=== PATIENT | female | born 1960 | race Caucasian/White ===

== ENCOUNTER 2022-02-19 16:35 | Outpatient (CLI) | payer BC ==
[2022-02-19] MEDS ORDERED: iohexoL-300 100 ML VIAL ONE (16:54)
[2022-02-19] MEDS ORDERED: iohexoL-300 100 ML VIAL IVP ONE (18:23)
--- NOTE | 2022-02-20 12:19 | CT Report ---
PROCEDURE: SOFT TISSUE NECK W INDICATIONS: NECK MASS CONTRAST: IV CONTRAST: Optiray 320 ml: 100 PO CONTRAST: *NO PO CONTRAST TECHNIQUE: After the administration of intravenous contrast, 3.0 mm axial sections acquired from the sella to th e aortic arch. Additional oblique axial 3.0 mm sections acquired through the pharynx. 3 mm thick co devyn reformats were generated. For radiation dose reduction, the following was used: automated exp osure control, adjustment of mA and/or kV according to patient size. COMPARISON: None. FINDINGS: Image quality: Excellent. Lymph nodes: Palpable abnormality corresponds with a 1.2 x 2.0 cm submandibular lymph node with low-d ensity core. Smaller findings submental nodes are present bilaterally. As well as in both cervical ch ains Vessels: Visualized vasculature appears patent. Neck spaces: The oropharynx, nasopharynx, and pharynx demonstrate no mucosal lesions. The vocal cor ds, false vocal cords, pyriform sinuses, epiglottis, vallecula, and tongue base all appear normal. E xtramucosal spaces appear unremarkable. Glands: The parotid and submandibular glands appear normal. The thyroid is normal in size and there are no incidental findings. Miscellaneous: Visualized brain and orbits appear normal. Biapical pulmonary emphysema present.. Goss perficial soft tissues appear normal. Bones: No suspicious bony lesions. Visualized sinuses and mastoids appear unremarkable. Degenerati ve disc disease and arthropathy noted in the cervical spine. No intrinsic osseous lesion. Moderate ce ntral stenosis C5-6 IMPRESSION: Palpable abnormality corresponds with right submandibular adenopathy with low-density center. Differe ntial would include suppurative adenitis and adenopathy with internal necrosis. Consider ultrasound-g uided percutaneous biopsy Biapical pulmonary emphysema Reviewed by: Kiel Paez MD on 02/20/2022 11:17 AM SUSIE Approved by: Kiel Paez MD on 02/20/2022 11:17 AM AKROLDAN Station ID: [id number]
== END 2022-02-19 16:36 | disposition home or self-care (01) ==
LOC: EDSEX → DI 16:35
PROVIDERS: ATTEND Dentist Oral and Maxillofacial Surgery
DX: R59.0 Localized enlarged lymph nodes (principal)
CPT/HCPCS: 70491; Q9967

== ENCOUNTER 2022-07-14 12:02 | Emergency (ER) | payer BC ==
[2022-07-14 12:16] VITALS: BP 170/80
--- NOTE | 2022-07-14 12:31 | ED Physician Documentation ---
History of Present Illness - Stated complaint Stated Complaint: PICC LINE WET - Chief complaint Chief Complaint: General - History obtained from History obtained from: Patient - History of Present Illness Pain level max: 0 Pain level now: 0 - Additonal information Additional information: 61-year-old female presents to the emergency department stating that she has had a PICC line in the right arm for the past 2 weeks. Today the dressing became wet while taking a shower. She is here requesting a dressing change. No fevers. No chills. No swelling. No redness. She has a history of "oral cancer". Review of Systems Constitutional: denies: Fever, Chills PD PAST MEDICAL HISTORY - Past Medical History Past Medical History: Yes Other Past Medical History: oral cancer - Past Surgical History Past Surgical History: No - Allergies Allergies/Adverse Reactions: Allergies Allergy/AdvReac Type Severity Reaction Status Date / Time No Known Drug Allergies Allergy Verified 07/14/22 12:16 - Family History Family history: reports: Non contributory PD ED PE NORMAL - Vitals Vital signs reviewed: Yes - General General: Alert and oriented X 3, No acute distress - HEENT HEENT: Moist mucous membranes - Derm Derm: Warm and dry - Extremities Extremities: Other (R arm - PICC line in place. No signs of infection.) - Neuro Neuro: Alert and oriented X 3 Results - Vitals Vitals: Vital Signs - 24 hr 07/14/22 12:14 Temperature 37.0 C Heart Rate 99 Respiratory 20 Rate Blood Pressure 170/80 H O2 Saturation 96 Oxygen O2 Source Room air PD Medical Decision Making - ED course Complexity details: considered differential, d/w patient ED course: PICC line dressing was changed by to the RN. No other acute emergency medical condition at this time. Patient counseled regarding signs and symptoms for which I believe and urgent re-evaluation would be necessary. Patient with good understanding of and agreement to plan and is comfortable going home at this time This document was made in part using voice recognition software. While efforts are made to proofread this document, sound alike and grammatical errors may occur. Departure - Departure Disposition: 01 Home, Self Care Clinical Impression: Dressing change Condition: Good Instructions: ED PICC Line Care Follow-Up: Your,doctor As needed [Other] Comments: Your PICC line dressing was changed today. Please follow-up with your doctor for further care. Return if you worsen.
== END 2022-07-14 12:47 | disposition home or self-care (01) ==
LOC: ED 12:02
DX: Z48.00 Encounter for change or removal of nonsurgical wound dressing (principal); C06.9 Malignant neoplasm of mouth, unspecified
CPT/HCPCS: 99282

== ENCOUNTER 2022-08-31 12:55 | Observation (INO) | payer BC ==
[2022-08-31] MEDS ORDERED: SODIUM CHLORIDE 0.9% 1,000 ML IV STA (14:03)
[2022-08-31] MEDS ORDERED: LACTATED RINGERS 1,000 ML IV STA (14:03)
[2022-08-31] MEDS ORDERED: METOCLOPRAMIDE 10 MG/2 ML VIAL IVP STA (14:03)
--- NOTE | 2022-08-31 14:08 | ED Physician Documentation ---
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 Now chemo q Friday and radiation weekly at [facility]. 4 days diarrhea, then nausea. ompltely PEG Tube fed but whenever she put something in through her PEG tube it comes out as vomit. She has no pain with this. She did have a single elevated temperature of 100.5 yesterday. No sick contacts. No recent travel. PD PAST MEDICAL HISTORY - Past Surgical History Past Surgical History: No - Allergies Allergies/Adverse Reactions: Allergies Allergy/AdvReac Type Severity Reaction Status Date / Time No Known Drug Allergies Allergy Verified 07/14/22 12:16 PD ED PE NORMAL - Vitals Vital signs reviewed: Yes - General General: Alert and oriented X 3, No acute distress - HEENT HEENT: Other (Dry mucous membranes) - Abdomen Abdomen: Normal bowel sounds, Soft, Non tender, Other (PEG tube upper abdomen) - Derm Derm: Other (Radiation drew on the upper chest/neck) - Extremities Extremities: No edema, No calf tenderness / cord - Neuro Neuro: Alert and oriented X 3, Normal speech Results - Vitals Vitals: Vital Signs - 24 hr 08/31/22 13:01 Temperature 36.4 C L Heart Rate 100 Respiratory 18 Rate Blood Pressure 89/45 L O2 Saturation 96 Oxygen O2 Source Room air - Labs Labs: Laboratory Tests 08/31/22 08/31/22 14:10 14:10 WBC 5.7 RBC 3.47 L Hgb 10.0 L Hct 30.3 L MCV 87.3 MCH 28.8 MCHC 33.0 RDW 16.5 H Plt Count 405 MPV 8.5 Neut # (Auto) 4.4 Lymph # (Auto) 0.4 L [place] # (Auto) 0.9 Eos # (Auto) 0.0 Baso # (Auto) 0.0 Absolute Nucleated RBC 0.00 Nucleated RBC % 0.0 Sodium 129 L Potassium 2.4 L* Chloride 95 L Carbon Dioxide 21 Anion Gap 13.0 BUN 14 Creatinine 1.1 H Estimated GFR (MDRD) 51 L Glucose 138 H Calcium 9.0 Magnesium 1.6 L Total Bilirubin 0.6 AST 15 ALT 15 Alkaline Phosphatase 113 Total Protein 7.7 Albumin 3.1 L Globulin 4.6 H Albumin/Globulin Ratio 0.7 L Lipase 22 PD Medical Decision Making - ED course ED course: 61-year-old woman with diarrhea on chemotherapy and vomiting. Benign abdomen. Febrile at home yesterday but not corroborated here with low blood pressures but appearing well. She was hydrated via her PICC line and found to have a CBC showing mild anemia but a CMP with severe hypokalemia and modest hypomagnesemia both repleted via IV. Given how low her potassium is and her hypotension I spoke with Dr. Hummel for observation at approximately 3:10 PM. Departure - Departure Disposition: ED Place in Observation Clinical Impression: Dehydration, Hypokalemia, Hypomagnesemia, Diarrhea, Vomiting Condition: Serious
[2022-08-31 14:14] LABS: BASOPHILS % (AUTO) 0.7 %; EOSINOPHILS % (AUTO) 0.4 %; HCT - HEMATOCRIT 30.3 % (37.0-47.0); LYMPHOCYTES # (AUTO) 0.4 10^3/uL (1.5-3.5); LYMPHOCYTES % (AUTO) 6.9 %; MEAN CORPUSCULAR HEMOGLOBIN 28.8 pg (27.0-31.0); MEAN CORPUSCULAR VOLUME 87.3 fL (81.0-99.0); MEAN PLATELET VOLUME 8.5 fL (7.9-10.8); MONOCYTES # (AUTO) 0.9 10^3/uL (0.0-1.0); MONOCYTES % (AUTO) 14.9 %; NEUTROPHILS # (AUTO) 4.4 10^3/uL (1.5-6.6); NEUTROPHILS % (AUTO) 76.7 %; PLT - PLATELET COUNT 405 10^3/uL (130-450); RED BLOOD COUNT 3.47 10^6/uL (4.20-5.40); RED CELL DISTRIBUTION WIDTH 16.5 % (12.0-15.0); WHITE BLOOD COUNT 5.7 x10^3/uL (4.8-10.8)
[2022-08-31 14:28] LABS: ALBUMIN 3.1 g/dL (3.2-5.5); ALBUMIN/GLOBULIN RATIO 0.7 (1.0-2.2); BILIRUBIN,TOTAL 0.6 mg/dL (0.2-1.0); CREATININE 1.1 mg/dL (0.4-1.0); TOTAL PROTEIN 7.7 g/dL (6.7-8.2)
[2022-08-31 14:31] LABS: POTASSIUM 2.4 mmol/L (3.5-5.0)
[2022-08-31] MEDS ORDERED: POTASSIUM CHLOR 20 MEQ/100 ML 20 MEQ/100 ML BAG IV ONE (14:31)
[2022-08-31 14:32] LABS: MAGNESIUM 1.6 mg/dL (1.7-2.8)
[2022-08-31] MEDS ORDERED: MAGNESIUM SULFATE 2 GRAM 2 GM/50 ML BAG IV ONE (15:04)
[2022-08-31] MEDS ORDERED: PROMETHAZINE 25 MG/1 ML VIAL IM PRN (16:36)
[2022-08-31] MEDS ORDERED: SODIUM CHLORIDE FLUSH 0.9% 10 ML SYRINGE IVP PRN (16:36)
[2022-08-31] MEDS ORDERED: HYDROcod/ACETAM 5/325 MG TABLET PO PRN (16:36)
[2022-08-31] MEDS ORDERED: ACETAMINOPHEN 325 MG TABLET PO PRN (16:36)
--- NOTE | 2022-08-31 16:47 | HISTORY & PHYSICAL EXAMINATION ---
Chief Complaint - Chief Complaint Chief Complaint: Diarrhea, vomiting History of Present Illness - Admitted From Admitted From:: Emergency department - History Obtained From Records Reviewed: Emergency department records History obtained from: Patient, ED physician Exam Limitations: None - History of Present Illness HPI Comment/Other: Patient is a 61-year-old female with past medical history of squamous cell carcinoma of the tongue, status postresection in March 2022. Initial diagnosis February 2022. Patient currently undergoing chemotherapy at [facility], has had 7 of 9 rounds of chemotherapy with the last one on Friday. She is also had 5 rounds of radiation therapy. She does swallow somewhat with very soft diet but has PEG tube for supplemental nutrition. She presents today with a 5-day history of progressively worsening diarrhea that started suddenly. She also has noticed vomiting every time she tries to feed herself via the PEG tube. She does report a self measured temperature at home of 100.5 F yesterday. She denies any abdominal pain. She denies any blood in the stool. Denies any hematemesis. She denies any prior history of similar episodes. She denies any sick contacts or recent travel. In the ED she was evaluated and found to be hypotensive with blood pressures in the 80s. This was reportedly measured to be in the 70 systolic at home. She has been afebrile, and has a benign abdominal exam. Lab work reveals no leukocytosis, hemoglobin of 10/hematocrit 30.3, and a potassium of 2.4. Creatinine is nearly normal at 1.1. BUN is normal at 14. LFTs are unremarkable. Stool studies were collected in the ED with results pending. Given the patient having persistent diarrhea with vomiting, hospital admission was requested. History - Past Medical History Cardiovascular: reports: Hypertension, High cholesterol, Other (Squamous cell carcinoma of the tongue) Respiratory: reports: None - Past Surgical History HEENT: reports: Other (Tongue resection March 2023) Meds/Allgy - Allergies Allergies/Adverse Reactions: Allergies Allergy/AdvReac Type Severity Reaction Status Date / Time No Known Drug Allergies Allergy Verified 08/31/22 16:39 Review of Systems - Constitutional Constitutional: reports: Fatigue, Malaise, Weakness - Cardiovascular Cariovascular: denies: Chest pain - Respiratory Respiratory: denies: Cough, SOB at rest - Gastrointestinal Gastrointestinal: reports: Diarrhea, Nausea, Vomiting. denies: Abdominal pain, Rectal bleeding, Black stools, Bloody stools - All Other Systems All Other Systems: reports: Reviewed and negative Prior Level of Functionality: Independent, however recently went on medical leave. She works at [employer]. Exam - Vital Signs Reviewed Vital Signs: Yes Vital Signs: Vital Signs x48h Temp Pulse Resp BP Pulse Ox 08/31/22 15:40 83 16 101/78 99 08/31/22 13:01 36.4 C L 100 18 89/45 L 96 - Physical Exam General Appearance: positive: No acute distress Eyes Bilateral: positive: Normal inspection ENT: positive: Other (Erythema to the skin of the neck consistent with radiation treatment, hemiresection of the tongue with resultant speech impediment) Respiratory: positive: Chest non-tender, No respiratory distress Cardiovascular: positive: Regular rate & rhythm, No murmur, No gallop Abdomen: positive: Non-tender, No organomegaly, Nml bowel sounds, No distention, Other (PEG tube site patent and clean) Skin: positive: Color nml, No rash, Warm, Dry Conclusion/Plan - Problem List (1) Nausea vomiting and diarrhea Conclusion/Plan: Patient presents with what might be infectious diarrhea given sudden onset and foul odor with watery diarrhea. Given her chemotherapy she is at risk for C. difficile Stool studies ordered in the ED IV fluids for supportive care Electrolyte replacement Follow-up stool studies and manage accordingly Contact precautions pending stool study results (2) Hypokalemia Conclusion/Plan: Potassium 2.9Secondary to GI loss from diarrhea and vomiting 20 mEq given in ED We will give an additional 40 mEq IV rider (3) Hypomagnesemia Conclusion/Plan: Magnesium replaced in ED (4) Squamous cell cancer of tongue Conclusion/Plan: Supportive care Bedside swallow eval, patient states she can tolerate small pieces of very soft food We will also continue PEG tube feeding (5) Hypertension Conclusion/Plan: Patient's blood pressure has been soft secondary to GI volume loss Continue replacement with IV fluids, NS at 100 mL/h Hold antihypertensive meds Qualifiers: Hypertension type: primary hypertension Qualified Code(s): I10 - Essential (primary) hypertension (6) Hyperlipidemia Conclusion/Plan: Hold statin - Lab Results Lab results reviewed: Yes Fish Bones: 08/31/22 14:10 08/31/22 14:10 Core Measures - Anticipated LOS I expect patient to be DC'd or transferred within 96 hours.: Yes - DVT/VTE - Prophylaxis VTE/DVT Device ordered at admit?: Yes
[2022-08-31] MEDS: SODIUM CHLORIDE 0.9% 1,000 ML IV SCH (17:01)
[2022-08-31] MEDS: SODIUM CHLORIDE FLUSH 0.9% 10 ML SYRINGE IVP SCH ×2 (18:10→23:08)
[2022-08-31] MEDS: POTASSIUM CHLOR 10 MEQ/100 ML 10 MEQ/100 ML BAG IV SCH ×4 (18:10→21:57)
[2022-08-31] MEDS ORDERED: ALBUTEROL NEB 2.5 MG/3 ML INH PRN (18:53)
[2022-08-31] MEDS: ONDANSETRON 4 MG/2 ML VIAL IVP PRN (21:03)
[2022-08-31] MEDS: MORPHINE 2 MG/ML CARPUJECT IVP PRN (21:03)
[2022-09-01 05:39] LABS: HCT - HEMATOCRIT 25.7 % (37.0-47.0); HGB - HEMOGLOBIN 8.4 g/dL (12.0-16.0); MEAN CORPUSCULAR HEMOGLOBIN 28.9 pg (27.0-31.0); MEAN CORPUSCULAR HGB CONC 32.7 g/dL (32.0-36.0); MEAN CORPUSCULAR VOLUME 88.3 fL (81.0-99.0); MEAN PLATELET VOLUME 8.6 fL (7.9-10.8); RED BLOOD COUNT 2.91 10^6/uL (4.20-5.40); RED CELL DISTRIBUTION WIDTH 16.6 % (12.0-15.0); WHITE BLOOD COUNT 3.8 x10^3/uL (4.8-10.8)
[2022-09-01 05:52] LABS: CALCIUM 8.4 mg/dL (8.5-10.3); CREATININE 0.5 mg/dL (0.4-1.0); POTASSIUM 2.6 mmol/L (3.5-5.0)
[2022-09-01] MEDS: SODIUM CHLORIDE 0.9% 1,000 ML IV SCH (06:25)
[2022-09-01] MEDS: SODIUM CHLORIDE FLUSH 0.9% 10 ML SYRINGE IVP SCH ×3 (08:07→20:30)
[2022-09-01] MEDS: MORPHINE 2 MG/ML CARPUJECT IVP PRN ×4 (08:08→16:53)
[2022-09-01] MEDS ORDERED: ENOXAPARIN 40 MG/0.4 ML SYRINGE SUBQ SCH (09:00)
[2022-09-01] MEDS: VANCOMYCIN 125 MG CAPSULE PO SCH ×4 (10:53→20:30)
[2022-09-01] MEDS: ONDANSETRON 4 MG/2 ML VIAL IVP PRN (11:20)
[2022-09-01 13:43] LABS: CALCIUM 8.6 mg/dL (8.5-10.3); CREATININE 0.5 mg/dL (0.4-1.0); MAGNESIUM 1.8 mg/dL (1.7-2.8); POTASSIUM 2.7 mmol/L (3.5-5.0)
--- NOTE | 2022-09-01 13:51 | PROVIDER PROGRESS NOTE ---
Assessment/Plan - Problem List (1) C. difficile diarrhea Assessment/Plan: Patient admitted yesterday evening for nausea vomiting and diarrhea of 5 days duration C. difficile results positive Patient continues to have diarrhea throughout the morning Has resultant hypokalemia Per patient it is starting to slow down as of this afternoon but potassium remains low despite adequate replacement most recently reported at 2.7 Vancomycin p.o. started this morning Continue vancomycin p.o., continue to replete electrolytes and possible discharge tomorrow pending lab results and clinical course (2) Hypokalemia Assessment/Plan: Secondary to above Continues to have hypokalemia despite replacement Likely secondary to GI loss Replace IV, recheck labs in the evening (3) Hypomagnesemia Assessment/Plan: Resolved, likely secondary to GI loss (4) Squamous cell cancer of tongue Assessment/Plan: Supportive care Bedside swallow eval, patient states she can tolerate small pieces of very soft food We will also continue PEG tube feeding (5) Hypertension Qualifiers: Hypertension type: primary hypertension Qualified Code(s): I10 - Essential (primary) hypertension Assessment/Plan: Patient's blood pressure has been soft secondary to GI volume loss Continue replacement with IV fluids, NS at 100 mL/h Hold antihypertensive meds (6) Hyperlipidemia Assessment/Plan: Given difficulty tolerating p.o., hold statin - Current Meds Current Meds: Current Medications Generic Name Dose Route Start Last Admin Trade Name Freq PRN Reason Stop Dose Admin Enoxaparin Sodium 40 mg 09/01/22 09:00 09/01/22 08:07 Enoxaparin 40 Mg/0.4 Ml Syringe SUBQ 40 mg DAILY SUMAN Administration Sodium Chloride 1,000 mls @ 100 mls/hr 08/31/22 17:00 09/01/22 06:25 Normal Saline 0.9% IV 100 mls/hr .Q10H SUMAN Administration Morphine Sulfate 2 mg 08/31/22 16:36 09/01/22 13:29 Morphine 2 Mg/Ml Carpuject IVP 2 mg Q2HR PRN Administration Pain 8 to 10 Ondansetron HCl 4 mg 08/31/22 16:36 09/01/22 11:20 Ondansetron 4 Mg/2 Ml Vial IVP 4 mg Q6HR PRN Administration Nausea / Vomiting Sodium Chloride 10 ml 08/31/22 17:00 09/01/22 08:07 Sodium Chloride Flush 0.9% 10 Ml Syringe IVP 10 ml 0100,0900,1700 SUMAN Administration Vancomycin HCl 125 mg 09/01/22 10:00 09/01/22 13:22 Vancomycin 125 Mg Capsule PO 09/11/22 09:59 125 mg QID SUMAN Administration - Lab Result Lab results reviewed: Yes Fish Bone Diagrams: 09/01/22 04:49 09/01/22 13:14 - Additional Planning Condition/Complexity: Stable My Orders: My Active Orders 08/31/22 16:36 Activity Orders [RC] Q2HR IO [RC] IOSHIFT Incentive Spirometry - RT [RC] TID Initiate Bowel Care Protocol [RC] .protocol Initiate Line Care Protocol [RC] QSHIFT Initiate Personal Care Protoco [RC] .protocol Oxygen Therapy [RC] .PRN Telemetry- [RC] Q4HR Vital Signs [RC] 0800,1600,0000 Acetaminophen [Tylenol] 650 mg PO Q4HR PRN HYDROcod/ACETAM 5/325 [[place] 5/325] 1 tab PO Q4HR PRN Morphine Inj (Carpuject) [Morphine (Carpuject)] 2 mg IVP Q2HR PRN Ondansetron Inj [Zofran Inj] 4 mg IVP Q6HR PRN Promethazine Inj [Phenergan Inj] 25 mg IM Q6HR PRN Sodium Chloride Flush 0.9% [Normal Saline Flush 0.9%] 10 ml IVP PRN PRN Code Status [OTHERS] Routine Condition of Patient [OTHERS] Routine DVT Prophylaxis [OTHERS] Routine 08/31/22 16:42 Tube Feeding [RC] QSHIFT 08/31/22 17:00 Sodium Chloride 0.9% [Normal Saline 0.9%] 1,000 ml IV 100 mls/hr Sodium Chloride Flush 0.9% [Normal Saline Flush 0.9%] 10 ml IVP 0100,0900,1700 08/31/22 18:22 Isolation [Infection Precautions] [RC] QSHIFT 08/31/22 18:53 Nebulizer/MDI Tx. [RC] QID Resp Teach Nebulizer/MDI [RC] .ONCE Albuterol 2.5 mg INH RTQ4H PRN 09/01/22 Clinical Swallow Evaluation [ST] Routine 09/01/22 Breakfast Dysphagia - Puree [DIET] 09/01/22 09:00 Enoxaparin [Lovenox] 40 mg SUBQ DAILY 09/01/22 10:00 Vancomycin [Vancocin] 125 mg PO QID 09/01/22 13:48 KCL 40 MEQ in NS 0.9% @ 125 MLS/HR(520ml) (ICU ONLY) Potassium Chloride Inj [Potassium Chloride] 40 meq Sodium Chloride 0.9% [Normal Saline 0.9%] 500 ml IV ONCE 09/02/22 05:00 BMP - BASIC METABOLIC PANEL [CHEM] DAILYLAB CBC W/O DIFF (HEMOGRAM) [HEME] DAILYLAB 09/03/22 05:00 BMP - BASIC METABOLIC PANEL [CHEM] DAILYLAB CBC W/O DIFF (HEMOGRAM) [HEME] DAILYLAB Subjective - Subjective Patient Reports: Feeling Better Objective Vital Signs: Vital Signs - 24 hr 08/31/22 08/31/22 08/31/22 15:40 16:30 17:00 Temperature Heart Rate 83 76 76 Heart Rate [ Brachial] Heart Rate [ Radial] Respiratory 16 16 18 Rate Blood Pressure 101/78 90/45 L 101/46 L Blood Pressure [Left Brachial artery] O2 Saturation 99 98 96 08/31/22 08/31/22 08/31/22 17:25 17:35 21:06 Temperature 36.5 C 37.0 C Heart Rate 77 Heart Rate [ 105 H Brachial] Heart Rate [ 81 Radial] Respiratory 16 16 20 Rate Blood Pressure 102/53 L Blood Pressure 92/60 101/42 L [Left Brachial artery] O2 Saturation 97 97 91 L 09/01/22 09/01/22 09/01/22 04:49 07:56 12:07 Temperature 36.4 C L 37.0 C 37.5 C Heart Rate Heart Rate [ 73 80 81 Brachial] Heart Rate [ Radial] Respiratory 20 18 16 Rate Blood Pressure Blood Pressure 100/49 L 111/47 L 106/42 L [Left Brachial artery] O2 Saturation 92 97 99 Oxygen O2 Source Room air I&O (Last 24 Hrs): Intake and Output Totals x24h 08/30/22 08/31/22 09/01/22 23:59 23:59 23:59 Intake Total 2790 1000 Output Total 0 Balance 2790 1000 General: Alert, Oriented x3 HEENT: Atraumatic Neuro: Alert, Oriented Times 3 Cardiovascular: Regular rate Respiratory: Chest non-tender, No respiratory distress, Breath sounds nml Abdomen: No tenderness Skin: No rashes - Results Results: Laboratory Results WBC 3.8 x10^3/uL (4.8-10.8) L 09/01/22 04:49 RBC 2.91 10^6/uL (4.20-5.40) L 09/01/22 04:49 Hgb 8.4 g/dL (12.0-16.0) L 09/01/22 04:49 Hct 25.7 % (37.0-47.0) L 09/01/22 04:49 MCV 88.3 fL (81.0-99.0) 09/01/22 04:49 MCH 28.9 pg (27.0-31.0) 09/01/22 04:49 MCHC 32.7 g/dL (32.0-36.0) 09/01/22 04:49 RDW 16.6 % (12.0-15.0) H 09/01/22 04:49 Plt Count 385 10^3/uL (130-450) 09/01/22 04:49 MPV 8.6 fL (7.9-10.8) 09/01/22 04:49 Neut # (Auto) 4.4 10^3/uL (1.5-6.6) 08/31/22 14:10 Lymph # (Auto) 0.4 10^3/uL (1.5-3.5) L 08/31/22 14:10 [place] # (Auto) 0.9 10^3/uL (0.0-1.0) 08/31/22 14:10 Eos # (Auto) 0.0 10^3/uL (0.0-0.7) 08/31/22 14:10 Baso # (Auto) 0.0 10^3/uL (0.0-0.1) 08/31/22 14:10 Absolute Nucleated RBC 0.00 x10^3/uL 08/31/22 14:10 Nucleated RBC % 0.0 /100WBC 08/31/22 14:10 Sodium 136 mmol/L (135-145) 09/01/22 13:14 Potassium 2.7 mmol/L (3.5-5.0) L 09/01/22 13:14 Chloride 106 mmol/L (101-111) 09/01/22 13:14 Carbon Dioxide 20 mmol/L (21-32) L 09/01/22 13:14 Anion Gap 10.0 (6-13) 09/01/22 13:14 BUN 8 mg/dL (6-20) 09/01/22 13:14 Creatinine 0.5 mg/dL (0.4-1.0) 09/01/22 13:14 Estimated GFR (MDRD) 126 (>89) 09/01/22 13:14 Glucose 95 mg/dL (70-100) 09/01/22 13:14 Calcium 8.6 mg/dL (8.5-10.3) 09/01/22 13:14 Magnesium 1.8 mg/dL (1.7-2.8) 09/01/22 13:14 Total Bilirubin 0.6 mg/dL (0.2-1.0) 08/31/22 14:10 AST 15 IU/L (10-42) 08/31/22 14:10 ALT 15 IU/L (10-60) 08/31/22 14:10 Alkaline Phosphatase 113 IU/L (42-121) 08/31/22 14:10 Total Protein 7.7 g/dL (6.7-8.2) 08/31/22 14:10 Albumin 3.1 g/dL (3.2-5.5) L 08/31/22 14:10 Globulin 4.6 g/dL (2.1-4.2) H 08/31/22 14:10 Albumin/Globulin Ratio 0.7 (1.0-2.2) L 08/31/22 14:10 Lipase 22 U/L (22-51) 08/31/22 14:10 Stl C. diff Tox B Gene POSITIVE (NEGATIVE) A* 08/31/22 14:30 ABX Reporting Has patient been on IV antibiotics over the past 48 hours?: No
[2022-09-01] MEDS: POTASSIUM CHLOR 10 MEQ/100 ML 10 MEQ/100 ML BAG IV SCH ×4 (14:12→18:18)
[2022-09-01] MEDS ORDERED: MAGIC MOUTHWASH 120 ML BOTTLE PO PRN (14:19)
[2022-09-01] MEDS ORDERED: COD LIVER OIL/ZINC OXIDE 113 GM TUBE TOP PRN (14:19)
[2022-09-01 16:08] VITALS: BP 110/48
--- NOTE | 2022-09-01 20:26 | PROVIDER PROGRESS NOTE ---
Continuous Wave Operator Note - Continuous Wave Operator Note Continuous Wave Operator Note: Patient is requesting to leave AGAINST MEDICAL ADVICE. Chart reviewed, admitted with hypokalemia, hypomagnesemia and diarrhea. Found to have C diff diarrhea. Patient needs to go home because her dog is having babies. She is AAOx4. Her is at bedside and will drive her home. Refuses to continue with hospitalization for tonight to continue to replete/monitor electrolytes. Discussed risks of leaving including arrhythmia potentially fatal due to electrolyte abnormalities, sepsis 2/2 untreated infection, . Advised patient to continue PO vancomycin (sent to [facility]). Pt has appt with her oncologist at 9 am tomorrow. Discussed with RN. Travis Lozano [facility]
--- NOTE | 2022-09-02 07:15 | DISCHARGE SUMMARY ---
Discharge Summary Admit Date: 08/31/22 Discharge Date: 09/01/22 (Left AMA) Discharging Provider: Dr Lozano ([facility] ) Code Status: Attempt Resuscitation Condition at Discharge: Serious Discharge Disposition: 07 Against Medical Advice - DIAGNOSES Admission Diagnoses: Nausea vomiting and diarrhea Hypokalemia Hypomagnesemia Squamous cell cancer of tongue Hypertension Hyperlipidemia Discharge Diagnoses with Status of Each Condition: C. difficile diarrheaimproved Hypokalemiaunresolved Hypomagnesemia resolved Squamous cell cancer of tonguestable Hypertensionstable Hyperlipidemiastable - HPI History of Present Illness: Patient is a 61-year-old female with past medical history of squamous cell carcinoma of the tongue, status postresection in March 2022. Initial diagnosis February 2022. Patient currently undergoing chemotherapy at [facility], has had 7 of 9 rounds of chemotherapy with the last one on Friday. She is also had 5 rounds of radiation therapy. She does swallow somewhat with very soft diet but has PEG tube for supplemental nutrition. She presents today with a 5-day history of progressively worsening diarrhea that started suddenly. She also has noticed vomiting every time she tries to feed herself via the PEG tube. She does report a self measured temperature at home of 100.5 F yesterday. She denies any abdominal pain. She denies any blood in the stool. Denies any hematemesis. She denies any prior history of similar episodes. She denies any sick contacts or recent travel. In the ED she was evaluated and found to be hypotensive with blood pressures in the 80s. This was reportedly measured to be in the 70 systolic at home. She has been afebrile, and has a benign abdominal exam. Lab work reveals no leukocytosis, hemoglobin of 10/hematocrit 30.3, and a potassium of 2.4. Creatinine is nearly normal at 1.1. BUN is normal at 14. LFTs are unremarkable. Stool studies were collected in the ED with results pending. Given the patient having persistent diarrhea with vomiting, hospital admission was requested. - HOSPITAL COURSE Hospital Course: Shortly after admission the patient's stool studies came back positive for C. difficile. Her diarrhea continued through the first night of admission and subsided marginally into the next day after admission. Patient was slightly improved and was generally stable however she continued to have hypokalemia with potassium levels less than 2 despite replacement. She was very eager to go home the day after discharge, but when informed about her persistent hypokalemia in the setting of C. difficile diarrhea and the importance of allowing electrolyte replacement and monitoring, she agreed to stay when this was discussed during morning and afternoon rounds. However in the evening, the patient notified the nurses that her dog went into labor at home and she must go home to assist in the delivery of the puppies. At this time, it was after hours during which there is no in-house hospitalist so the telemedicine hospitalist was contacted. Dr. Lozano, the telemedicine hospitalist on-call, discussed with the patient the importance of electrolyte replacement and advised her against going home in particular specifically with the risks of hypokalemia in the setting of C. difficile diarrhea. The patient voiced understanding, but was not agreeable to stay and ultimately signed to leave AGAINST MEDICAL ADVICE. She was given a prescription for p.o. vancomycin and she stated she had an appointment with her oncologist the next day and would have them follow-up on her lab work. - ALLERGIES Allergies/Adverse Reactions: Allergies Allergy/AdvReac Type Severity Reaction Status Date / Time No Known Drug Allergies Allergy Verified 08/31/22 16:39 - MEDICATIONS Home Medications: Ambulatory Orders Medication Instructions Recorded Confirmed Cyclobenzaprine [Flexeril] 10 mg PO TID PRN 09/01/22 09/01/22 LORazepam [Ativan] 0.5 mg PO Q8H PRN 09/01/22 09/01/22 Morphine ER [Ms Contin] 15 mg PO Q12H 09/01/22 09/01/22 Omeprazole 40 mg PO QDAC 09/01/22 09/01/22 Oxycodone HCl/Acetaminophen 2 tab PO Q6H PRN 09/01/22 09/01/22 [Oxycodone-Acetaminophen 5-325] Vancomycin [Vancocin] 125 mg PO QID 8 Days #32 cap 09/01/22 amLODIPine [Norvasc] 5 mg PO DAILY 09/01/22 09/01/22 lisinopriL [Lisinopril] 10 mg PO DAILY 09/01/22 09/01/22 - LABS Result Diagrams: 09/01/22 04:49 09/01/22 13:14 - FOLLOW UP Follow Up: Follow-up was advised for hypokalemia and patient has appointment with her oncologist on 09/03/2022, the day after leaving AGAINST MEDICAL ADVICE. She was also advised to follow-up with her PCP. - TIME SPENT Time Spent in Discharge (Minutes): 23
[2022-09-03 15:08] LABS: CRYPTOSPORIDIUM EIA Negative (Negative); GIARDIA LAMBLIA AG EIA Negative (Negative)
== END 2022-09-01 20:45 | disposition left against medical advice (07) ==
LOC: ED 12:55 → MS2 16:36
PROVIDERS: ADMIT Family Medicine Sports Medicine; ATTEND Family Medicine Sports Medicine
DX: E86.0 Dehydration (principal); E87.6 Hypokalemia; E83.42 Hypomagnesemia; A04.72 Enterocolitis due to Clostridium difficile, not specified as recurrent; C02.9 Malignant neoplasm of tongue, unspecified; Z53.29 Procedure and treatment not carried out because of patient's decision for other reasons; I95.9 Hypotension, unspecified; I10 Essential (primary) hypertension; Z95.828 Presence of other vascular implants and grafts; Z79.899 Other long term (current) drug therapy; Z93.1 Gastrostomy status
CPT/HCPCS: 36415; 80048; 80053; 83690; 83735; 85025; 85027; 87045; 87046; 87328; 87329; 87427; 87493; 96361; 96365; 96366; 96367; 96372; 96375; 96376; 99285; A9270; G0378; J1650; J2765; J7120; J8499

== ENCOUNTER 2022-11-04 14:45 | Emergency (ER) | payer BC ==
--- NOTE | 2022-11-04 15:20 | ED Physician Documentation ---
History of Present Illness - Stated complaint Stated Complaint: PX,CHILLS,BLEEDING - Chief complaint Chief Complaint: General - History obtained from History obtained from: Patient - Additonal information Additional information: This is a 61-year-old female with a past medical history of squamous cell carcinoma with prior tongue resection and current PEG tube. She presents today due to concerns about possible infection around the PEG tube. She has had some purulent drainage and tenderness around the PEG tube interested in site for the last several days. She continues to tolerate feeds well however though has not had any other abdominal pain. She has felt chilled at times but no known fever. She does take some p.o. though she has to swallow very slowly and multiple times that she supplements with PEG tube feedings. She states she had a similar issue about 6 to 8 weeks ago and her PCP put her on short course of antibiotics which resolved the issue. She has been trying to keep the site clean and has been applying [id number] antibacterial ointment to it. She does state that she has had trouble finding appropriate drain dressings at the pharmacy and wants to know if we have any additional here. 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 : Kidney stones HEENT: None Psych: None Musculoskeletal: Chronic back pain Derm: None Other Past Medical History: oral cancer - Past Surgical History Past Surgical History: Yes /GUSSET EDGER: Hysterectomy HEENT: Other - Present Medications Home Medications: Ambulatory Orders Medication Instructions Recorded Confirmed LORazepam [Ativan] 0.5 mg PO Q8H PRN 09/01/22 11/04/22 Omeprazole 40 mg PO QDAC 09/01/22 11/04/22 Oxycodone HCl/Acetaminophen 2 tab PO Q6H PRN 09/01/22 11/04/22 [Oxycodone-Acetaminophen 5-325] Vancomycin [Vancocin] 125 mg PO QID 8 Days #32 cap 09/01/22 11/04/22 amLODIPine [Norvasc] 5 mg PO DAILY 09/01/22 11/04/22 lisinopriL [Lisinopril] 10 mg PO DAILY 09/01/22 11/04/22 Albuterol Sulf [Ventolin Hfa 1 - 2 puffs INH Q4HR PRN 11/04/22 11/04/22 Inhaler] Albuterol Sulf [Ventolin Hfa 1 - 2 puffs INH Q4HR PRN #1 each 11/04/22 Inhaler] Mupirocin 2% Oint [Bactroban 2% 1 applic TOP BID #22 gm 11/04/22 Oint] cephALEXin [Keflex] 500 mg PO Q6H #28 cap 11/04/22 - Allergies Allergies/Adverse Reactions: Allergies Allergy/AdvReac Type Severity Reaction Status Date / Time No Known Drug Allergies Allergy Verified 11/04/22 14:52 - Social History Does the pt smoke?: No Smoking Status: Former smoker Does the pt drink ETOH?: No Does the pt have substance abuse?: No - Immunizations Immunizations are current?: Yes PD ED PE NORMAL - Vitals Vital signs reviewed: Yes - General General: Alert and oriented X 3, No acute distress, Well developed/nourished - HEENT HEENT: Atraumatic, Moist mucous membranes - Cardiac Cardiac: RRR, No murmur - Respiratory Respiratory: No respiratory distress, Clear bilaterally - Abdomen Abdomen: Normal bowel sounds, Soft, Non tender, Non distended, Other (There is mild redness around the PEG tube site with a small amount of purulent drainage from the site, no palpable abscess or fluid collection.) - Derm Derm: Normal color, Warm and dry Results - Vitals Vitals: Vital Signs - 24 hr 11/04/22 11/04/22 11/04/22 14:52 15:32 16:07 Temperature 36.1 C L Heart Rate 80 74 66 Respiratory 18 14 16 Rate Blood Pressure 147/72 H 148/76 H 135/78 H O2 Saturation 100 100 100 Oxygen O2 Source Room air - Labs Labs: Laboratory Tests 11/04/22 11/04/22 15:29 15:29 WBC 3.3 L RBC 3.78 L Hgb 11.8 L Hct 35.9 L MCV 95.0 MCH 31.2 H MCHC 32.9 RDW 15.1 H Plt Count 335 MPV 8.7 Neut # (Auto) 1.8 Lymph # (Auto) 1.0 L [place] # (Auto) 0.4 Eos # (Auto) 0.1 Baso # (Auto) 0.0 Absolute Nucleated RBC 0.00 Nucleated RBC % 0.0 Sodium 138 Potassium 3.2 L Chloride 102 Carbon Dioxide 28 Anion Gap 8.0 BUN 5 L Creatinine 0.5 Estimated GFR (MDRD) 126 Glucose 107 H Calcium 9.3 PD Medical Decision Making - ED course Complexity details: reviewed results, considered differential, d/w patient ED course: 61-year-old female presents with concerns for possible infection around her PEG insertion site. She has no systemic symptoms but has tenderness to tube site. She does continue to use it for feeds and has been tolerating feeds well but has tenderness when the PEG is moved and has noticed some purulent drainage from the site. On exam, there is scant mucoid drainage around the PEG and very mild redness localized to the insertion site, no palpable abscess or induration around the tube site. Advised that she may have a mild skin infection but it appears to be localized to the insertion site and I do not think she needs a CT scan at this time to evaluate for any other source of infection. She did want to proceed lab recover and we did obtain this which is stable. We have cleaned the PEG site and applied a appropriate drain sponge and have given her an additional several sponges to use at home. She was advised to keep the area clean with gentle soap and water otherwise keep dry and she can apply mupirocin ointment and I will give her 5-day course of Keflex. If pain worsens or she develops a fever, swelling around the area, is not tolerating her feeds or has other new concerns she was advised to follow-up In the ER or follow-up with her surgeon or PCP. Departure - Departure Disposition: 01 Home, Self Care Clinical Impression: Pain around PEG tube site Qualifiers: Encounter type: initial encounter Qualified Code(s): T85.848A - Pain due to other internal prosthetic devices, implants and grafts, initial encounter Condition: Good Prescriptions: Albuterol Sulf [Ventolin Hfa Inhaler] 1 - 2 puffs INH Q4HR PRN #1 each PRN Reason: Shortness Of Air/Wheezing Mupirocin 2% Oint [Bactroban 2% Oint] 1 applic TOP BID #22 gm cephALEXin [Keflex] 500 mg PO Q6H #28 cap Comments: Your labs are stable. Please follow-up with your primary doctor and keep an eye on your PEG tube site. Keep area clean with gentle soap and water. I am prescribing you a stronger antibiotic ointment as well as a short course of oral antibiotics for this infection. If the pain gets worse or you develop a fever or other new concerns, please return to the ER. Medications sent to [facility] Discharge Date/Time: 11/04/22 16:14
[2022-11-04 15:39] LABS: BASOPHILS % (AUTO) 0.3 %; EOSINOPHILS # (AUTO) 0.1 10^3/uL (0.0-0.7); EOSINOPHILS % (AUTO) 4.3 %; HCT - HEMATOCRIT 35.9 % (37.0-47.0); HGB - HEMOGLOBIN 11.8 g/dL (12.0-16.0); LYMPHOCYTES % (AUTO) 29.5 %; MEAN CORPUSCULAR HEMOGLOBIN 31.2 pg (27.0-31.0); MEAN CORPUSCULAR HGB CONC 32.9 g/dL (32.0-36.0); MEAN PLATELET VOLUME 8.7 fL (7.9-10.8); MONOCYTES # (AUTO) 0.4 10^3/uL (0.0-1.0); MONOCYTES % (AUTO) 11.4 %; NEUTROPHILS # (AUTO) 1.8 10^3/uL (1.5-6.6); NEUTROPHILS % (AUTO) 54.5 %; PLT - PLATELET COUNT 335 10^3/uL (130-450); RED BLOOD COUNT 3.78 10^6/uL (4.20-5.40); RED CELL DISTRIBUTION WIDTH 15.1 % (12.0-15.0); WHITE BLOOD COUNT 3.3 x10^3/uL (4.8-10.8)
[2022-11-04 15:46] LABS: CALCIUM 9.3 mg/dL (8.5-10.3); CREATININE 0.5 mg/dL (0.4-1.0); POTASSIUM 3.2 mmol/L (3.5-5.0)
[2022-11-04 16:08] VITALS: BP 135/78
== END 2022-11-04 16:14 | disposition home or self-care (01) ==
LOC: ED 14:45
DX: T85.848A Pain due to other internal prosthetic devices, implants and grafts, initial encounter (principal); Z87.891 Personal history of nicotine dependence
CPT/HCPCS: 36415; 80048; 85025; 99283

== ENCOUNTER 2022-12-12 22:19 | Emergency (ER) | payer BC ==
--- NOTE | 2022-12-12 22:58 | ED Physician Documentation ---
History of Present Illness - Stated complaint Stated Complaint: L SIDE PX - Chief complaint Chief Complaint: Abd Pain - History obtained from History obtained from: Patient - Additonal information Additional information: 62-year-old woman with past surgical history of PEG tube presents with concern about irritation and redness around the insertion point of the PEG tube. This has been ongoing for the past couple days. 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 : Kidney stones HEENT: None Psych: None Musculoskeletal: Chronic back pain Derm: None - Past Surgical History Past Surgical History: Yes /PAPERHANGER ASSISTANT: Hysterectomy HEENT: Other - Present Medications Home Medications: Ambulatory Orders Medication Instructions Recorded Confirmed LORazepam [Ativan] 0.5 mg PO Q8H PRN 09/01/22 11/04/22 Omeprazole 40 mg PO QDAC 09/01/22 11/04/22 Oxycodone HCl/Acetaminophen 2 tab PO Q6H PRN 09/01/22 11/04/22 [Oxycodone-Acetaminophen 5-325] Vancomycin [Vancocin] 125 mg PO QID 8 Days #32 cap 09/01/22 11/04/22 amLODIPine [Norvasc] 5 mg PO DAILY 09/01/22 11/04/22 lisinopriL [Lisinopril] 10 mg PO DAILY 09/01/22 11/04/22 Albuterol Sulf [Ventolin Hfa 1 - 2 puffs INH Q4HR PRN 11/04/22 11/04/22 Inhaler] Albuterol Sulf [Ventolin Hfa 1 - 2 puffs INH Q4HR PRN #1 each 11/04/22 Inhaler] Mupirocin 2% Oint [Bactroban 2% 1 applic TOP BID #22 gm 11/04/22 Oint] cephALEXin [Keflex] 500 mg PO Q6H #28 cap 11/04/22 Mupirocin 2% Oint [Bactroban 2% 1 applic TOP BID 14 Days #50 gm 12/12/22 Oint] - Allergies Allergies/Adverse Reactions: Allergies Allergy/AdvReac Type Severity Reaction Status Date / Time No Known Drug Allergies Allergy Verified 12/12/22 22:30 - Social History Does the pt smoke?: No Smoking Status: Former smoker Does the pt drink ETOH?: No Does the pt have substance abuse?: No - Immunizations Immunizations are current?: Yes PD ED PE NORMAL - Vitals Vital signs reviewed: Yes - General General: Alert and oriented X 3, No acute distress, Well developed/nourished - HEENT HEENT: Atraumatic, PERRL, EOMI - Neck Neck: Supple, no meningeal sign - Abdomen Abdomen: Non tender, Non distended, Other (PEG tube in place. mild irritation and some discharge from the os) Results - Vitals Vitals: Vital Signs - 24 hr 12/12/22 22:21 Temperature 36.6 C Heart Rate 86 Respiratory 19 Rate Blood Pressure 141/60 H O2 Saturation 100 Oxygen O2 Source Room air PD Medical Decision Making - ED course ED course: . 8-year-old woman presents to the emergency department for PEG tube check. She has some irritation around the tube insertion site and possible early cellulitis. Antibiotic ointment sent to pharmacy. Return precautions given. Plan to follow-up with primary care provider and doctor who inserted the tube. Departure - Departure Disposition: 01 Home, Self Care Clinical Impression: Skin irritation, Pain around PEG tube site Condition: Stable Instructions: Feeding Tube PEG Prescriptions: Mupirocin 2% Oint [Bactroban 2% Oint] 1 applic TOP BID 14 Days #50 gm Comments: . Electronic prescription for antibiotic ointment sent to [facility] in [place]. Return to the emergency department if you have other concerns. Follow- up with your doctor who inserted the tube. Forms: PCP List
[2022-12-12 23:24] VITALS: BP 138/64
== END 2022-12-12 23:20 | disposition home or self-care (01) ==
LOC: ED 22:19
DX: R10.9 Unspecified abdominal pain (principal); L98.8 Other specified disorders of the skin and subcutaneous tissue; I10 Essential (primary) hypertension; E78.00 Pure hypercholesterolemia, unspecified; J43.9 Emphysema, unspecified; Z79.899 Other long term (current) drug therapy; Z87.891 Personal history of nicotine dependence
CPT/HCPCS: 99282; 99283

== ENCOUNTER 2023-01-07 08:04 | Emergency (ER) | payer BC ==
[2023-01-07 08:33] VITALS: BP 139/74; O2SAT 99
== END 2023-01-07 09:20 | disposition left against medical advice (07) ==
LOC: ED 08:04
DX: Z53.21 Procedure and treatment not carried out due to patient leaving prior to being seen by health care provider (principal)
CPT/HCPCS: 80053; 85025

== ENCOUNTER 2023-01-17 20:40 | Emergency (ER) | payer BC ==
[2023-01-17 20:57] VITALS: BP 136/66; O2SAT 100
[2023-01-17] MEDS ORDERED: DIATRIZOATE MEGLU/DIATRIZO SOD 30 ML BOTTLE PO ONE (21:00)
--- NOTE | 2023-01-17 21:42 | ED Physician Documentation ---
History of Present Illness - Stated complaint Stated Complaint: FEEDING TUBE PUT BACK - Chief complaint Chief Complaint: General - Additonal information Additional information: 62-year-old female who has a history of tongue cancer presents the emergency department to have her feeding tube replaced. It came out around noon today and simply fell out of the hole. Patient is able to take p.o. and liquid by mouth and uses the tube mainly for hydration. No other complaints today. 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 : Kidney stones HEENT: None Psych: None Musculoskeletal: Chronic back pain Derm: None - Past Surgical History Past Surgical History: Yes /GANG VIBRATOR OPERATOR: Hysterectomy HEENT: Other - Present Medications Home Medications: Ambulatory Orders Medication Instructions Recorded Confirmed LORazepam [Ativan] 0.5 mg PO Q8H PRN 09/01/22 11/04/22 Omeprazole 40 mg PO QDAC 09/01/22 11/04/22 Oxycodone HCl/Acetaminophen 2 tab PO Q6H PRN 09/01/22 11/04/22 [Oxycodone-Acetaminophen 5-325] Vancomycin [Vancocin] 125 mg PO QID 8 Days #32 cap 09/01/22 11/04/22 amLODIPine [Norvasc] 5 mg PO DAILY 09/01/22 11/04/22 lisinopriL [Lisinopril] 10 mg PO DAILY 09/01/22 11/04/22 Albuterol Sulf [Ventolin Hfa 1 - 2 puffs INH Q4HR PRN 11/04/22 11/04/22 Inhaler] Albuterol Sulf [Ventolin Hfa 1 - 2 puffs INH Q4HR PRN #1 each 11/04/22 Inhaler] Mupirocin 2% Oint [Bactroban 2% 1 applic TOP BID #22 gm 11/04/22 Oint] cephALEXin [Keflex] 500 mg PO Q6H #28 cap 11/04/22 Mupirocin 2% Oint [Bactroban 2% 1 applic TOP BID 14 Days #50 gm 12/12/22 Oint] - Allergies Allergies/Adverse Reactions: Allergies Allergy/AdvReac Type Severity Reaction Status Date / Time No Known Drug Allergies Allergy Verified 01/17/23 20:49 - Social History Does the pt smoke?: No Smoking Status: Former smoker Does the pt drink ETOH?: No Does the pt have substance abuse?: No - Immunizations Immunizations are current?: Yes PD ED PE NORMAL - Abdomen Abdomen: Other (Feeding tube stoma on the left mid abdomen is closed. No abdominal tenderness elicited.) Results - Vitals Vitals: Vital Signs - 24 hr 01/17/23 20:45 Temperature 36.5 C Heart Rate 81 Respiratory 16 Rate Blood Pressure 136/66 H O2 Saturation 100 Oxygen O2 Source Room air PD Medical Decision Making - ED course Complexity details: d/w patient ED course: 62-year-old female who has a history of tongue cancer presents emergency department requesting to have her feeding tube replaced. It fell out about 10 hours prior to arrival. She uses a feeding tube mostly for hydration but is able to take orals adequately. I did attempt to replace the 16 [place] feeding tube however the stoma had closed at this juncture. She is discharged home and advised to follow with her GI surgeon and oncology team to determine if she will need this moving forward. She otherwise appears clinically well and hemodynamically stable. The usual emergent return precautions were discussed for concerns of dehydration. Departure - Departure Disposition: 01 Home, Self Care Clinical Impression: Complication of feeding tube Condition: Stable Comments: Noreen bray the stoma or the hole through which the feeding tube was placed has closed. When the surgically implanted feeding tubes like this fall out they do need to be replaced typically within a few hours. It is very important that you discuss this with your oncology and GI team. Based on your symptoms and ability to take hydration foods and medicines orally you may not need to have the feeding tube replaced but I would leave that to the discretion of your primary providers. Return to the ER for any concerns of dehydration, abdominal pain or fevers.
== END 2023-01-17 22:05 | disposition home or self-care (01) ==
LOC: ED 20:40
DX: K94.29 Other complications of gastrostomy (principal); I10 Essential (primary) hypertension; Z87.891 Personal history of nicotine dependence
CPT/HCPCS: 43762; 99283

== ENCOUNTER 2023-03-26 15:19 | Emergency (ER) | payer BC ==
[2023-03-26 16:14] LABS: BASOPHILS # (AUTO) 0.1 10^3/uL (0.0-0.1); BASOPHILS % (AUTO) 1.2 %; EOSINOPHILS # (AUTO) 0.1 10^3/uL (0.0-0.7); EOSINOPHILS % (AUTO) 2.8 %; HCT - HEMATOCRIT 36.8 % (37.0-47.0); HGB - HEMOGLOBIN 11.9 g/dL (12.0-16.0); LYMPHOCYTES # (AUTO) 1.3 10^3/uL (1.5-3.5); LYMPHOCYTES % (AUTO) 31.6 %; MEAN CORPUSCULAR HEMOGLOBIN 31.1 pg (27.0-31.0); MEAN CORPUSCULAR HGB CONC 32.3 g/dL (32.0-36.0); MEAN CORPUSCULAR VOLUME 96.1 fL (81.0-99.0); MEAN PLATELET VOLUME 8.4 fL (7.9-10.8); MONOCYTES # (AUTO) 0.5 10^3/uL (0.0-1.0); MONOCYTES % (AUTO) 10.8 %; NEUTROPHILS # (AUTO) 2.3 10^3/uL (1.5-6.6); NEUTROPHILS % (AUTO) 53.6 %; PLT - PLATELET COUNT 298 10^3/uL (130-450); RED BLOOD COUNT 3.83 10^6/uL (4.20-5.40); RED CELL DISTRIBUTION WIDTH 12.7 % (12.0-15.0); WHITE BLOOD COUNT 4.2 x10^3/uL (4.8-10.8)
[2023-03-26 16:31] LABS: ALBUMIN 4.2 g/dL (3.2-5.5); ALBUMIN/GLOBULIN RATIO 1.6 (1.0-2.2); BILIRUBIN,TOTAL 0.4 mg/dL (0.2-1.0); CALCIUM 10.2 mg/dL (8.5-10.3); CREATININE 0.8 mg/dL (0.6-1.3); POTASSIUM 4.4 mmol/L (3.5-4.5); TOTAL PROTEIN 6.9 g/dL (6.4-8.9)
[2023-03-26 17:12] VITALS: BP 132/67; O2SAT 99
--- NOTE | 2023-03-26 17:13 | ED Physician Documentation ---
History of Present Illness - Stated complaint Stated Complaint: GI - Chief complaint Chief Complaint: Abd Pain - History obtained from History obtained from: Patient, Family - History of Present Illness Pain level max: 6 Pain level now: 5 - Additonal information Additional information: Patient is a 62-year-old female who presents to the emergency department stating she has a history of tongue cancer. She states that she had a G-tube replaced several weeks ago. She states this was done at [facility], unknown who placed the feeding tube. She states that it has become red, inflamed and is draining "pus". She states it is painful. No fevers. No chills. No vomiting. Her G-tube fell out today. She came here for evaluation. No diarrhea. No constipation. She states she does use a feeding tube daily. 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 : Kidney stones HEENT: None Psych: None Musculoskeletal: Chronic back pain Derm: None - Past Surgical History Past Surgical History: Yes /PROFESSOR OF EXERCISE 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: Hysterectomy HEENT: Other - Present Medications Home Medications: Ambulatory Orders Medication Instructions Recorded Confirmed lisinopriL [Lisinopril] 10 mg PO DAILY 09/01/22 03/26/23 Gabapentin [Neurontin] 300 mg PO TID 03/26/23 03/26/23 - Allergies Allergies/Adverse Reactions: Allergies Allergy/AdvReac Type Severity Reaction Status Date / Time No Known Drug Allergies Allergy Verified 01/17/23 20:49 - Social History Does the pt smoke?: No Smoking Status: Never smoker Does the pt drink ETOH?: No Does the pt have substance abuse?: No - Immunizations Immunizations are current?: Yes PD ED PE NORMAL - Vitals Vital signs reviewed: Yes - General General: Alert and oriented X 3, No acute distress - HEENT HEENT: Moist mucous membranes - Neck Neck: Supple, no meningeal sign - Cardiac Cardiac: RRR, Strong equal pulses - Respiratory Respiratory: No respiratory distress, Clear bilaterally - Abdomen Abdomen: Soft, Non distended, Other (Erythema, inflammation to the stoma site. There are several red-colored caps that appear to be sewn into her stoma as well.) - Derm Derm: Warm and dry - Extremities Extremities: No deformity - Neuro Neuro: Alert and oriented X 3 - Psych Psych: Normal mood, Normal affect Results - Vitals Vitals: Vital Signs - 24 hr 03/26/23 03/26/23 03/26/23 15:37 16:54 17:07 Temperature 36.8 C Heart Rate 88 64 Respiratory 20 20 20 Rate Blood Pressure 117/71 132/67 H O2 Saturation 98 99 Oxygen O2 Source Room air - Labs Labs: Laboratory Tests 03/26/23 03/26/23 16:08 16:08 WBC 4.2 L RBC 3.83 L Hgb 11.9 L Hct 36.8 L MCV 96.1 MCH 31.1 H MCHC 32.3 RDW 12.7 Plt Count 298 MPV 8.4 Neut # (Auto) 2.3 Lymph # (Auto) 1.3 L [place] # (Auto) 0.5 Eos # (Auto) 0.1 Baso # (Auto) 0.1 Absolute Nucleated RBC 0.00 Nucleated RBC % 0.0 Sodium 138 Potassium 4.4 Chloride 102 Carbon Dioxide 33 H Anion Gap 3.0 L BUN 8 Creatinine 0.8 Estimated GFR (MDRD) 73 L Glucose 104 Calcium 10.2 Total Bilirubin 0.4 AST 12 ALT 8 L Alkaline Phosphatase 99 Total Protein 6.9 Albumin 4.2 Globulin 2.7 Albumin/Globulin Ratio 1.6 Lipase 17 PD Medical Decision Making - ED course Complexity details: considered differential, d/w patient ED course: Unclear with the other objects sewn into the stoma. Unclear why they are there. Therefore it was decided to try to obtain records from [facility] prior to replacing the feeding tube. There does appear to be a likely secondary infection. While attempting to obtain records from [facility] the patient decided that she would just go to [facility] instead for treatment and Eloped from the emergency department. She apparently did tell one of the nurses that she was going to go to [facility] since that is where her GI and providers are. I did not have a chance to speak to the patient before she left. Departure - Departure Disposition: ED Elope Clinical Impression: Complication of feeding tube Condition: Stable Forms: PCP List Discharge Date/Time: 03/26/23 18:27
== END 2023-03-26 18:27 | disposition left against medical advice (07) ==
LOC: ED 15:19
DX: Z43.1 Encounter for attention to gastrostomy (principal); I10 Essential (primary) hypertension; E78.00 Pure hypercholesterolemia, unspecified; J43.9 Emphysema, unspecified; Z79.899 Other long term (current) drug therapy
CPT/HCPCS: 36415; 80053; 83690; 85025; 99282; 99283